=== PATIENT | male | born 1935 | race Two or more races ===

== ENCOUNTER 2016-10-13 18:01 | Emergency (ER) | payer BC, MEDICARE ==
[~2016-10-13] VITALS: Ht 172.7 cm; Wt 60.8 kg
[~2016-10-13 18:01] MED LIST: SIMV20TA3 PO
[2016-10-13 18:05] VITALS: BP 150/82
--- NOTE | 2016-10-13 18:37 | PHYS DOC ---
Past Medical History Past Medical History: Anxiety, High Cholesterol, Hypertension Additional Past Medical Histor: H PYLORI Past Surgical History: Other Additional Past Surgical Histo: back and nose Alcohol Use: None Drug Use: None Adult General Chief Complaint Chief Complaint: FOOT INJURY PAIN [facility] HPI Patient is a 81 year old male presents to the emergency department stating that he had dropped a log on his right foot on . He states he has was able to ambulate on it with no difficulty. He states that he began to swell and turn black and blue now he has been having increased difficulty with ambulation. He denies having pain and discomfort. However he states that it feels very tight from all the swelling. He states that his had him soak his foot in Epsom salt. Review of Systems Review of Systems Constitutional: Denies fever or chills [] Eyes: Denies change in visual acuity, redness, or eye pain [] HENT: Denies nasal congestion or sore throat [] Respiratory: Denies cough or shortness of breath [] Cardiovascular: No additional information not addressed in HPI [] GI: Denies abdominal pain, nausea, vomiting, bloody stools or diarrhea [] : Denies dysuria or hematuria [] Musculoskeletal: Denies back pain. Complain right foot pain and discomfort Integument: Denies rash or skin lesions [] Neurologic: Denies headache, focal weakness or sensory changes [] Endocrine: Denies polyuria or polydipsia [] Allergies Allergies Allergies Coded Allergies Type Severity Reaction Last Updated Verified Penicillins Allergy Mild Rash 02/18/13 Yes Physical Exam Physical Exam Constitutional: Well developed, well nourished, no acute distress, non-toxic appearance. [] HENT: Normocephalic, atraumatic, bilateral external ears normal, oropharynx moist, no oral exudates, nose normal. [] Eyes: PERRLA, EOMI, conjunctiva normal, no discharge. [] Neck: Normal range of motion, no tenderness, supple, no stridor. [] Cardiovascular:Heart rate regular rhythm Lungs & Thorax: No respiratory distress noted Skin: Warm, dry, no erythema, no rash. [] Back: No tenderness Extremities: Right foot tenderness, patient with swelling noted into the ankle area with bruising noted to the lower part of the inner foot. Peripheral pulses 2+ cap refill brisk less than 2 seconds. No cyanosis, no clubbing, ROM intact, no edema. [] Neurologic: Alert and oriented X 3, normal motor function, normal sensory function, no focal deficits noted. [] Psychologic: Affect normal, judgement normal, mood normal. [] EKG EKG [] Radiology/Procedures Radiology/Procedures [] Course & Med Decision Making Course & Med Decision Making Pertinent Labs and Imaging studies reviewed. (See chart for details) Patient was offered Tylenol or ibuprofen here in the emergency department with patient refusing at this time stating that it really does not hurt it's a swollen. X-rays are negative for any bony abnormalities. Patient will be placed in an Lam wrap with recommendations for ice packs on 20 minutes off 20 minutes several times a day elevation as much as possible. Patient will be encouraged to follow-up with orthopedic within the next 3-5 days. Signs and symptoms to return back to emergency department as been provided. Patient agrees with discharge instructions treatment regimens and follow-up recommendations. [] Dragon Disclaimer Dragon Disclaimer This electronic medical record was generated, in whole or in part, using a voice recognition dictation system. Departure Departure Impression: Primary Impression: Contusion of right foot Disposition: HOME, SELF-CARE Condition: STABLE Referrals: AROLDO SINHA MD (PCP) MAGALYS CONNER MD Patient Instructions: Foot Contusion, [id number] Additional Instructions: X-rays negative for bony abnormalities Ice packs on 20 minutes and off 20 minutes several times a day Elevation as much as possible Wear the lam wrap for the next 5-7 days Followup with orthopedic in 5-7 days Return to emergency department as needed for signs and symptoms that become worse. [facility] Oct 13, 2016 18:37
--- NOTE | 2016-10-14 08:27 | RAD ---
Three-view right foot study history: Heavy object fell on top of foot. Pain mostly in the first digit and metatarsal area. Findings: No acute fracture or dislocation or osteolytic process or periosteal reaction is seen. IMPRESSION: No acute fracture.
== END 2016-10-13 18:52 | disposition home or self-care (01) ==
LOC: ER 18:01
DX: S90.31XA Contusion of right foot, initial encounter (principal); I10 Essential (primary) hypertension; E78.00 Pure hypercholesterolemia, unspecified; Z88.0 Allergy status to penicillin; W20.8XXA Other cause of strike by thrown, projected or falling object, initial encounter; Y93.89 Activity, other specified; Y99.8 Other external cause status; Y92.89 Other specified places as the place of occurrence of the external cause
CPT/HCPCS: 73630; 99284

== ENCOUNTER 2017-04-29 08:52 | Emergency (ER) | payer BC | END 2017-04-29 10:12 | disposition home or self-care (01) | LOC: ER 08:52 | DX: S49.91XA Unspecified injury of right shoulder and upper arm, initial encounter (principal); I10 Essential (primary) hypertension; E78.00 Pure hypercholesterolemia, unspecified; Z88.0 Allergy status to penicillin; W00.0XXA Fall on same level due to ice and snow, initial encounter; Y93.89 Activity, other specified; Y99.8 Other external cause status; Y92.89 Other specified places as the place of occurrence of the external cause | CPT/HCPCS: 73030; 99284 ==

== ENCOUNTER 2017-07-20 14:43 | Emergency (ER) | payer BC ==
[2017-07-20] MEDS: LIDOCAINE WITH 8.4% SOD BICARB 3 ML DISP.SYRIN. INJ (15:00)
[2017-07-20] MEDS: DIPHTH,PERTUSS(ACELL),TET TOX 0.5 ML DISP.SYRIN. VAX IM (15:29)
[2017-07-20] MEDS: HYDROcodone/APAP 5/325MG 1 TAB TABLET PO (16:10)
== END 2017-07-20 16:22 | disposition home or self-care (01) ==
LOC: ER 14:43
DX: S61.411A Laceration without foreign body of right hand, initial encounter (principal); E78.00 Pure hypercholesterolemia, unspecified; I10 Essential (primary) hypertension; K21.9 Gastro-esophageal reflux disease without esophagitis; Z88.0 Allergy status to penicillin; W29.3XXA Contact with powered garden and outdoor hand tools and machinery, initial encounter; Y93.89 Activity, other specified; Y99.8 Other external cause status; Y92.89 Other specified places as the place of occurrence of the external cause
CPT/HCPCS: 12002; 73110; 73130; 90471; 90715; 99284-25

== ENCOUNTER → 2020-12-23 | Outpatient (CLI) | payer BC ==
[2017-07-20 15:01] VITALS: BP 157/84
[~2020-12-23] MED LIST changes: +CEPH-264 PO; +HYDR-3135 PO; +SIMV20TA18 PO; -SIMV20TA3 PO
--- NOTE | 2020-12-23 08:12 | RAD ---
EXAM: Carotid Doppler sonogram. HISTORY: Carotid bruit. TECHNIQUE: Zhao scale and color Doppler sonographic evaluation of the neck with spectral waveform leslie lysis was performed and static images are submitted for review. FINDINGS: The peak systolic velocity within the right common carotid artery is 90 cm/sec. The peak sy stolic velocity within the right internal carotid artery is 103 cm/sec and the end diastolic velocity within the right internal carotid artery is 39 cm/sec. The right ICA/CCA ratio is 1.3. The peak systolic velocity within the left common carotid artery is 130 cm/sec. The peak systolic milan ocity within the left internal carotid artery is 79 cm/sec and the end diastolic velocity within the left internal carotid artery is 25 cm/sec. The left ICA/CCA ratio is 0.89. There is normal antegrade flow within both vertebral arteries. IMPRESSION: Doppler findings consistent with less than 50 percent stenosis involving the internal car otid arteries. PQRS Compliance Statement - Stenosis calculations for CT, MR and conventional angiography are based u ariel measurement of the distal ICA diameter in accordance with the NASCET methodology. Stenosis calcu lations for carotid ultrasound studies are derived from validated velocity criteria which are known t o correlate with the NASCET methodology. Electronically signed by: Darlin Pham MD (12/23/2020 8:09 AM) [id number]
== END ==
LOC: US 14:53
PROVIDERS: ATTEND Family Medicine
DX: R09.89 Other specified symptoms and signs involving the circulatory and respiratory systems (principal)
CPT/HCPCS: 93880